=== PATIENT | male | born 1975 | race Caucasian/White ===

== ENCOUNTER 2020-03-16 14:25 | Observation (INO) | payer OTHER, SELFPAY ==
[2020-03-16] VITALS (10 sets, daily range): BP systolic 102–150; BP diastolic 65–91; PULSE 75–94; RESP 11–25; TEMP 37–37.7; O2SAT 96–98; BMI 22.2
--- NOTE | 2020-03-16 | PATH_ITS ---
[facility] Accession Number: [id number] . 01 Material submitted: . appendix - APPENDIX . 01 Clinical history: . LOWER QUAD PAIN/NAUSEA X2 DAYS . 02 Diagnosis: Appendix, Appendectomy: Portion of fibroadipose tissue with serositis; please see comment. Two benign lymph nodes. No appendiceal tissue identified. No evidence of neoplasm. MRV 03/20/2020 1433 Local . 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 . The findings in this case were reported to Dr. Golden via SANDRITA Dumont by Dr. Barksdale on 03/20/2020 at 10:00 a.m. The findings in the case were further discussed between Dr. Golden and Dr. Barksdale on 03/20/2020 at 12:18 p.m. . 02 Electronically signed: . Reginaldo Barksdale MD, PhD, Pathologist NPI- [id number] . 01 Gross description: . The specimen is received in formalin, labeled appendix, and consists of a 1.5 x 1.0 x 0.7 cm possible portion of appendiceal tip with a pink-purple, ragged serosa and a olson-pink mucosa. There is a 4.5 x 2.0 x 1.0 cm portion of attached olson-yellow, lobulated soft tissue with adherent purulent exudate. The specimen is entirely submitted. . A1: Candidate appendiceal tip, bisected. A2-A7: Remainder of specimen. ([id number]) /FRR 03/18/2020 1631 Local . 02 Pathologist provided ICD-10: R10.30 . 02 CPT . 619459 Performed at: [address] [facility], [place], [place] [id number] MD Bo Toure MD Phone: [phone] Performed at: 02 [facility] [id number] [place] [id number] MD Mariel Mcmullen MD Phone: [phone]
[2020-03-16 14:59] LABS: Add Manual Diff / Slide Review NO; Basophils Absolute Auto 0 /uL (0-100); Basophils Percent Auto 0.4 % (0-2); Eosinophils Absolute Auto 0 /uL (0-450); Eosinophils Percent Auto 0.1 % (2-4); Hemoglobin 15.9 g/dL (13.5-17.5); Lymphocytes Absolute Auto 2600 /uL (1100-4500); Lymphocytes Percent Auto 18.8 % (25-40); Mean Corpuscular HGB Conc 33.8 % (30-36); Mean Corpuscular Hemoglobin 31.4 PG (26-34); Mean Corpuscular Volume 92.8 fL (80-100); Monocytes Absolute Auto 1300 /uL (0-900); Monocytes Percent Auto 9.6 % (3-14); Neutrophils Absolute Auto 9700 /uL (1500-7000); Neutrophils Percent Auto 71.1 % (50-75); Platelet Count 210 X10^3/uL (150-400); Red Blood Cell Count 5.06 X10^6/uL (4.5-5.9); Red Cell Distribution Width 12.9 % (11.6-14.8); White Blood Cell Count 13.6 X10^3/uL (4.5-11.0)
[2020-03-16 15:06] LABS: INR 1.1 (0.9-1.3); Prothrombin Time 12.7 SECONDS (10.1-12.7)
[2020-03-16 15:08] LABS: PTT Partial Thromboplastin Tim 32 SECONDS (26.4-36.2)
[2020-03-16 15:12] LABS: Alanine Aminotransferase 24 IU/L (<50); Albumin 4.9 g/dL (3.5-5.0); Albumin Globulin Ratio 1.3 (1.0-2.8); Alkaline Phosphatase 57 U/L (38-126); Aspartate Aminotransferase 27 IU/L (17-59); BUN Creatinine Ratio 21.3 (6-22); Bilirubin Total 1.3 mg/dL (0.2-1.3); Blood Urea Nitrogen 17 mg/dL (9-20); Calcium 9.9 mg/dL (8.4-10.2); Carbon Dioxide 32 mmol/L (22-32); Chloride 97 mmol/L (98-107); Estimated Glomerular Filt Rate > 60.0 mL/min (>60); Globulin 3.9 g/dL (1.7-4.1); Glucose 104 mg/dL (70-100); HEMOLYSIS < 15 (0-50); Lipase 34 U/L (23-300); Potassium 4.1 mmol/L (3.4-5.1); Sodium 137 mmol/L (137-145); Total Protein 8.8 g/dL (6.3-8.2)
--- NOTE | 2020-03-16 17:08 | ED_ITS ---
HPI - Abdominal Pain General Chief Complaint: Abdominal Pain Stated Complaint: lower quad pain/nausea x2 days Time Seen by Provider: 03/16/20 17:07 Source: patient Mode of arrival: Ambulatory Limitations: no limitations History of Present Illness HPI narrative: The patient developed abdominal pain 2 days ago. Pain started in the epigastric region and is now moved to the right lower quadrant. He had nausea vomiting history. He had chills, no fever. He has no hematemesis. He is having no diarrhea. He is not eating or drinking well. He has no genital pain, no dysuria or hematuria. He denies associated back pain. History only healthy without medical problems. He has no recent URI symptoms, fever, sore throat, or dyspnea. He has no chest symptoms. He has had no recent injury or illness. He has no history of surgeries. Related Data Allergies Allergy/AdvReac Type Severity Reaction Status Date / Time No Known Drug Allergies Allergy Verified 03/16/20 14:33 Review of Systems Constitutional Constitutional: Denies body ache(s), Reports chills, Denies fever(s) and Denies headache(s) ENT Ears, Nose, Mouth, and Throat: Denies vertigo, Denies dizziness, Denies headache(s) and Denies sore throat Cardiovascular Cardiovascular: Denies chest pain, Denies irregular heart rhythm and Denies lightheadedness Gastrointestinal Gastrointestinal: Denies abdominal pain, Denies diarrhea, Denies nausea and Denies vomiting Musculoskeletal Musculoskeletal: Denies arthralgias, Denies back pain and Denies myalgias Integumentary/Breasts Skin/Breast: Denies erythema, Denies rash and Denies wounds Neurologic Neurologic: Denies confusion, Denies vertigo, Denies dizziness and Denies headache(s) Psychiatric Psychiatric: Denies confusion Patient History Medical History No chronic diseases present Surgical History No significant past surgical history Social History Smoking Status: Unknown if ever smoked Smoking Status: Unknown if ever smoked alcohol intake frequency: a few times a week Substance Use Type: marijuana Exam Initial Vital Signs Initial Vital Signs: Vital Signs Temperature 99.8 F H 03/16/20 14:32 Pulse Rate 94 H 03/16/20 14:32 Respiratory Rate 15 03/16/20 14:32 Blood Pressure 143/81 H 03/16/20 14:32 Pulse Oximetry 98 03/16/20 14:32 Const General: cooperative and well developed Nutritional Appearance: well nourished [facility] Head: normocephalic and atraumatic Neck Neck: trachea midline and No lymphadenopathy Resp Auscultation: clear to auscultation bilaterally Cardio Rate: regular rate Rhythm: regular rhythm Heart Sounds: S1 normal, S2 normal, no murmurs and no rubs GI Palpation: soft Other: Abdomen is flat, focal tenderness in the right lower quadrant with guarding and rebound. Normal bowel sounds. No masses. Heel tap is equivocal. Back/Spine/Pelvis Back: No CVA tenderness Skin General: no rashes or lesions noted Neuro General: patient oriented x3 Speech: speech normal Motor: muscle tone normal throughout Course Course Course Narrative: The patient was found to have acute retrocecal appendicitis. Social was given. He did receive Toradol, he is feeling better. The case was discussed with surgery, Dr. Golden. He will be evaluated later tonight by Dr. Golden for surgical care. Orders Ordered: ED Orders 03/16/20 14:38 EKG-12 Lead Stat 03/16/20 14:49 Complete Blood Count AUTO DIFF Stat Comprehensive Metabolic Panel Stat Lipase Stat Partial Thromboplastin Time Stat Prothrombin Time INR Stat 03/16/20 16:58 Urine Microscopic Stat 03/16/20 17:13 CT abdomen pelvis w con Stat Sodium Chloride (Normal Saline 0.9%) 1,000 mls @ 1,000 mls/hr IV BOLUS ONE Stop: 03/16/20 18:12 Last Admin: 03/16/20 17:33 Dose: 1,000 mls/hr Documented by: DANN Discontinued Medications Ketorolac Tromethamine (Ketorolac 60 Mg/2 Ml Vial) 30 mg IV NOW ONE Stop: 03/16/20 17:14 Last Admin: 03/16/20 17:33 Dose: 30 mg Documented by: DANN Vital Signs Vital signs: Vital Signs - 8 hr 03/16/20 14:32 03/16/20 16:06 03/16/20 17:00 Temperature 99.8 F H Pulse Rate 94 H 87 87 Respiratory Rate 15 16 19 Blood Pressure 143/81 H 132/78 127/79 Pulse Oximetry 98 98 98 MDM - Abdominal Pain Lab Data Result diagrams: 03/16/20 14:49 03/16/20 14:49 Labs: Lab Results 03/16/20 03/16/20 03/16/20 Range/Units 14:49 14:49 14:49 WBC 13.6 H (4.5-11.0) X10^3/uL RBC 5.06 (4.5-5.9) X10^6/uL Hgb 15.9 (13.5-17.5) g/dL Hct 47.0 (41-53) % MCV 92.8 (80-100) fL MCH 31.4 (26-34) PG MCHC 33.8 (30-36) % RDW 12.9 (11.6-14.8) % Plt Count 210 (150-400) X10^3/uL Neut % (Auto) 71.1 (50-75) % Lymph % (Auto) 18.8 L (25-40) % [place] % (Auto) 9.6 (3-14) % Eos % (Auto) 0.1 L (2-4) % Baso % (Auto) 0.4 (0-2) % Neut # (Auto) 9700 H (5557-2389) /uL Lymph # (Auto) 2600 (5105-1854) /uL [place] # (Auto) 1300 H (0-900) /uL Eos # (Auto) 0 (0-450) /uL Baso # (Auto) 0 (0-100) /uL PT 12.7 (10.1-12.7) SECONDS INR 1.1 (0.9-1.3) APTT 32 (26.4-36.2) SECONDS Sodium 137 (137-145) mmol/L Potassium 4.1 (3.4-5.1) mmol/L Chloride 97 L (98-107) mmol/L Carbon Dioxide 32 (22-32) mmol/L BUN 17 (9-20) mg/dL Creatinine 0.80 (0.66-1.25) mg/dL Estimated GFR > 60.0 (>60) mL/min BUN/Creatinine Ratio 21.3 (6-22) Glucose 104 H (70-100) mg/dL Calcium 9.9 (8.4-10.2) mg/dL Total Bilirubin 1.3 (0.2-1.3) mg/dL AST 27 (17-59) IU/L ALT 24 (<50) IU/L Alkaline Phosphatase 57 (38-126) U/L Total Protein 8.8 H (6.3-8.2) g/dL Albumin 4.9 (3.5-5.0) g/dL Globulin 3.9 (1.7-4.1) g/dL Albumin/Globulin Ratio 1.3 (1.0-2.8) Lipase 34 (23-300) U/L Urine RBC (0-5/HPF) Urine WBC (0-5/HPF) Ur Squamous Epith Cells (0-5/HPF) Amorphous Sediment Urine Bacteria (None) Urine Mucus (Negative) Ur Culture Indicated? 03/16/20 Range/Units 16:58 WBC (4.5-11.0) X10^3/uL RBC (4.5-5.9) X10^6/uL Hgb (13.5-17.5) g/dL Hct (41-53) % MCV (80-100) fL MCH (26-34) PG MCHC (30-36) % RDW (11.6-14.8) % Plt Count (150-400) X10^3/uL Neut % (Auto) (50-75) % Lymph % (Auto) (25-40) % [place] % (Auto) (3-14) % Eos % (Auto) (2-4) % Baso % (Auto) (0-2) % Neut # (Auto) (9256-0512) /uL Lymph # (Auto) (3106-8074) /uL [place] # (Auto) (0-900) /uL Eos # (Auto) (0-450) /uL Baso # (Auto) (0-100) /uL PT (10.1-12.7) SECONDS INR (0.9-1.3) APTT (26.4-36.2) SECONDS Sodium (137-145) mmol/L Potassium (3.4-5.1) mmol/L Chloride (98-107) mmol/L Carbon Dioxide (22-32) mmol/L BUN (9-20) mg/dL Creatinine (0.66-1.25) mg/dL Estimated GFR (>60) mL/min BUN/Creatinine Ratio (6-22) Glucose (70-100) mg/dL Calcium (8.4-10.2) mg/dL Total Bilirubin (0.2-1.3) mg/dL AST (17-59) IU/L ALT (<50) IU/L Alkaline Phosphatase (38-126) U/L Total Protein (6.3-8.2) g/dL Albumin (3.5-5.0) g/dL Globulin (1.7-4.1) g/dL Albumin/Globulin Ratio (1.0-2.8) Lipase (23-300) U/L Urine RBC 0-1/hpf (0-5/HPF) Urine WBC 0-1/hpf (0-5/HPF) Ur Squamous Epith Cells 0-1 /hpf (0-5/HPF) Amorphous Sediment 1+ Urine Bacteria Occasional (0-1) (None) Urine Mucus 2+ H (Negative) Ur Culture Indicated? Cult not indicated Point of care testing: Urine Dip Bedside Urine Glucose Negative Bedside Urine Bilirubin - Negative Bedside Urine Ketone +++ 80 Urine Specific [place] 1.025 Bedside Urine Occult Blood +/- Bedside Urine pH 6.0 Bedside Urine Protein - Negative Bedside Urine Urobilinogen - Negative Bedside Urine Nitrite - Negative Bedside Urine Leukocytes - Negative Esterase Imaging Data CT scan - abdomen/pelvis: Radiologist's Impression: Retrocecal appendicitis, without perforation. Critical Care Time Critical Care Time Critical Care Time: Yes Total Critical Care Time: 30 Attestation: Care include initial assessment patient, review of lab and x-ray data, discussing the situation the patient, and consultation with the admitting surgeon. Discharge Plan Departure Patient Disposition: Admitted to Surgery Clinical Impression: Acute appendicitis Qualifiers: Acute appendicitis type: with localized peritonitis Appendicitis gangrene presence: unspecified whether gangrene present Appendicitis perforation presence: without perforation Appendicitis abscess presence: unspecified whether abscess present Qualified Code(s): K35.30 - Acute appendicitis with localized peritonitis, without perforation or gangrene Admit Date/Time: 03/16/20 18:35 Admit Provider: Enrique Golden
--- NOTE | 2020-03-16 17:13 | DI.CT.S_ITS ---
PROCEDURE: CT ABDOMEN PELVIS W CON INDICATIONS: RLQ tenderness TECHNIQUE: After the administration of intravenous contrast, 5 mm thick sections acquired from the diaphragm to the symphysis. 5 mm coronal and sagittal reformats were acquired. For radiation dose reduction, the following was used: automated exposure control, adjustment of mA and/or kV according to patient size. COMPARISON: None. FINDINGS: Image quality: Excellent. ABDOMEN: Lung bases: Lung bases are clear. Heart size is normal. Solid organs: Liver is normal in size and enhancement. Gallbladder appears normal. Biliary system is non dilated. Pancreas enhances normally. Spleen is normal in size and enhancement. No adrenal nodules. Kidneys demonstrate normal size and enhancement, without hydronephrosis. Peritoneum and bowel: The appendix is dilated to 12 mm with surrounding periappendiceal fat stranding and edema that extends along the right pericolic gutter. No discrete fluid collection or pneumoperitoneum is seen. The appendix is retrocecal in location. There are no signs of bowel obstruction. Nodes and vessels: No retroperitoneal or mesenteric adenopathy by size criteria. Aorta and inferior vena cava are normal in size. Miscellaneous: No ventral hernias. PELVIS: Genitourinary: Bladder wall thickness is normal. Miscellaneous: No inguinal hernias or adenopathy. Bones: No suspicious bony lesions. No vertebral body compression fractures. IMPRESSION: Acute retrocecal appendicitis. Findings were discussed with the referring physician, Dr. Diamond, on 03/16/2020 at 4:41 PM ([place] time). Dictated by: Theo Abad M.D. on 03/16/2020 at 16:39 Approved by: Theo Abad M.D. on 03/16/2020 at 16:44
[2020-03-16 17:18] LABS: Amorphous Sediment Urine 1+; Bacteria Urine Occasional (0-1); Culture Indicated Urine Cult Not Indicated; Mucus Urine 2+ (Negative); RBC Urine 0-1/HPF (0-5/HPF); Squamous Epithelial Cell Urine 0-1 /HPF (0-5/HPF); WBC Urine 0-1/HPF (0-5/HPF)
[2020-03-16] MEDS: KETOROLAC 60 MG/2 ML VIAL 30 MG IV (17:33)
[2020-03-16] MEDS: SODIUM CHLORIDE 0.9% 1,000 ML 1000 ML IV (17:33)
[2020-03-16 18:48] LABS: COVID19 -Nasal RAPID Negative (Negative)
[2020-03-16] MEDS: PIPERACILLIN/TAZO 4.5 GM in SODIUM CHLORIDE 0.9% 100 ML 200 ML IV (18:49)
--- NOTE | 2020-03-16 20:23 | PM.HP.1 ---
History of Present Illness History of Present Illness Date Patient Seen: 03/16/20 Time Patient Seen: 20:23 Chief complaint: lower quad pain/nausea x2 days Narrative: 44M seen in consultation for acute appendicits. Two days of periumbilical pain 24 hours ago became focused in the right lower quadrant associated with nausea and vomiting. CT abdomen and pelvis demonstrates acute appendicitis no abscess retrocecal appendix. Admission temperature 99.8? remainder of vital signs within normal limits. WBC 14, hematocrit 47, creatinine 0.8. Urinalysis negative. Received 3.375 g Zosyn. No prior surgery or medical history. Patient History Medical History No chronic diseases present Surgical History No significant past surgical history Family & Social History Safety & Behavioral: Feels Safe in Current Yes Environment Been Physically Hurt or No Threatened By a Person Tobacco & Substance use: Smoking Status Unknown if ever smoked alcohol intake frequency a few times a week Substance Use Type marijuana Meds Home Medications and Allergies Allergies Allergy/AdvReac Type Severity Reaction Status Date / Time No Known Drug Allergies Allergy Verified 03/16/20 14:33 Review of Systems Review of Systems Narrative: A 10 point review of systems is negative except as noted in the HPI Exam Vital Signs (past 8 hours): - 03/16/20 14:32 03/16/20 16:06 03/16/20 17:00 Temperature 99.8 F H Pulse Rate 94 H 87 87 Respiratory Rate 15 16 19 Blood Pressure 143/81 H 132/78 127/79 Pulse Oximetry 98 98 98 03/16/20 19:25 03/16/20 19:49 Temperature Pulse Rate 79 83 Respiratory Rate 19 25 H Blood Pressure 122/66 102/65 Pulse Oximetry 97 98 Oxygen Delivery Method Room Air Narrative Exam Narrative: General-no acute distress, well nourished adult male HEENT-moist mucous membranes, no scleral icterus Neck-supple, no lymphadenopathy Chest- non labored respirations, clear to auscultation bilaterally Cardiac-regular rate no peripheral edema Abdomen-soft, focal tenderness right lower quadrant Extremities-warm, well perfused Neurological-alert and oriented, no focal deficits Objective Labs Result Diagrams: 03/16/20 14:49 03/16/20 14:49 Labs: Laboratory Results - last 24 hr 03/16/20 03/16/20 03/16/20 14:49 14:49 14:49 WBC 13.6 H RBC 5.06 Hgb 15.9 Hct 47.0 MCV 92.8 MCH 31.4 MCHC 33.8 RDW 12.9 Plt Count 210 Neut % (Auto) 71.1 Lymph % (Auto) 18.8 L [place] % (Auto) 9.6 Eos % (Auto) 0.1 L Baso % (Auto) 0.4 Neut # (Auto) 9700 H Lymph # (Auto) 2600 [place] # (Auto) 1300 H Eos # (Auto) 0 Baso # (Auto) 0 PT 12.7 INR 1.1 APTT 32 Sodium 137 Potassium 4.1 Chloride 97 L Carbon Dioxide 32 BUN 17 Creatinine 0.80 Estimated GFR > 60.0 BUN/Creatinine Ratio 21.3 Glucose 104 H Calcium 9.9 Total Bilirubin 1.3 AST 27 ALT 24 Alkaline Phosphatase 57 Total Protein 8.8 H Albumin 4.9 Globulin 3.9 Albumin/Globulin Ratio 1.3 Lipase 34 Urine RBC Urine WBC Ur Squamous Epith Cells Amorphous Sediment Urine Bacteria Urine Mucus Ur Culture Indicated? COVID-19 PCR 03/16/20 03/16/20 16:58 18:12 WBC RBC Hgb Hct MCV MCH MCHC RDW Plt Count Neut % (Auto) Lymph % (Auto) [place] % (Auto) Eos % (Auto) Baso % (Auto) Neut # (Auto) Lymph # (Auto) [place] # (Auto) Eos # (Auto) Baso # (Auto) PT INR APTT Sodium Potassium Chloride Carbon Dioxide BUN Creatinine Estimated GFR BUN/Creatinine Ratio Glucose Calcium Total Bilirubin AST ALT Alkaline Phosphatase Total Protein Albumin Globulin Albumin/Globulin Ratio Lipase Urine RBC 0-1/hpf Urine WBC 0-1/hpf Ur Squamous Epith Cells 0-1 /hpf Amorphous Sediment 1+ Urine Bacteria Occasional (0-1) Urine Mucus 2+ H Ur Culture Indicated? Cult not indicated COVID-19 PCR Negative Assessment & Plan Assessment and plan (1) Acute appendicitis: Qualifiers: Acute appendicitis type: with localized peritonitis Appendicitis abscess presence: unspecified whether abscess present Appendicitis gangrene presence: unspecified whether gangrene present Appendicitis perforation presence: without perforation Qualified Code(s): K35.30 - Acute appendicitis with localized peritonitis, without perforation or gangrene Status: Acute Assessment & Plan narrative: 44-year-old man with acute appendicitis. Laboratory studies and imaging reviewed. CT abdomen pelvis demonstrates acute appendicitis without abscess or phlegmon in a retrocecal position. Recommended we proceed with laparoscopic appendectomy. Technical details of the operation were discussed with the patient. Operative risks including bleeding infection conversion to open damage to surrounding structures were discussed. His questions have been answered he is in agreement with this plan will proceed to the operating room.
[2020-03-16] MEDS: ACETAMINOPHEN IV 1,000 MG/100 ML VIAL 400 MG IV (21:15)
[2020-03-16] MEDS: BUPIVACAINE 0.25% (PF) VIAL 30 ML INJ (21:19)
--- NOTE | 2020-03-16 22:14 | P.OP_ITS ---
Operative Date/Time/Diagnoses Date of procedure: 03/16/20 Time of procedure: 22:14 Pre-op diagnosis: acute appendicitis Post-op diagnosis: same Procedure & Clinicians Procedure: laparoscopic appendectomy Same procedure as scheduled: Yes Indications: 44M with acute appendicitis CT without abscess or phlegmon Surgeon: Enrique Golden Anesthesia Type: General Operative Notes Findings: Retrocecal acute nonperforated appendicits. Specimen(s): other (Appendix) Estimated Blood Loss (mL): 100 Procedure in detail: Patient was brought to the operating room placed supine on the table. Bilateral lower extremity compression devices were applied. Anesthesia was induced and they intubated with an endotracheal tube. They received 3.375 g of Zosyn prior to skin incision. The left arm was tucked and appropriately padded. They were prepped and draped in sterile fashion. Time-out was performed. An infraumbilical incision was made the umbilical stalk was grasped and elevated and incision was made and the abdomen was entered atraumatically. A 12 mm balloon trocar was then placed through the incision and pneumoperitoneum of 14 mm Hg was established. The scope was then inserted and the abdomen inspected, there was no evidence of injury upon entry. Two 5 mm ports were placed under direct visualization, one in the left lower quadrant and second in the lower midline. A thorough laparoscopic evaluation was performed inspecting all four quadrants. The patient was then tilted right side up. The small bowel was then swept to the upper aspect of the abdomen. The tenie were followed to the base of the cecum where the base of the appendix was identified. It was retrocecal and I mobilized the cecum medially in order to completely expose it by incising the white line of T[place]. The appendix was mobilized off the cecum and from its lateral attachments. It was acutely inflamed but not frankly perforated there was no abscess but there was significant fat strading. The appendix was grasped, the mesentery was divided with the LigaSure. In dissecting out the appendix it fractured off at its base. The remainder of the base was healthy and it was closed flush at the cecum with the endo stapler blue load. There was some generalized oozing from the raw surface area behind the cecum which was controlled with cautery. Hemostasis was observed and I placed a sheet of surgicel over the area as well. The specimen was retrieved using a endoscopic retrieval bad through the 10 mm infra-umbilical port. The right parac olic gutter and the pouch of Chap[place] were irrigated The 5 mm ports were then removed under direct visualization. The umbilical fascial incision was closed with 0 Vicryl in a figure-eight fashion. The skin wounds were irrigated and closed with 4-0 Monocryl followed by the application of Dermabond. Sponge instrument count at the end of the operation was correct. The patient tolerated procedure well was extubated and transferred to the postoperative care unit in stable condition. Complications: none Post-operative Condition: stable Disposition: observation
[2020-03-16] MEDS: SODIUM CHLORIDE 0.9% 1,000 ML 100 ML IV (23:08)
[2020-03-17] VITALS (11 sets, daily range): BP systolic 108–129; BP diastolic 57–78; PULSE 64–82; RESP 16–18; TEMP 36.5–37.3; O2SAT 94–97
[2020-03-17] MEDS: HYDROMORPHONE 0.5 MG INJ IV (03:49)
[2020-03-17] MEDS: ACETAMINOPHEN 325 MG TABLET 650 MG PO (05:51)
--- NOTE | 2020-03-17 11:25 | CM.DANOTE ---
Discharge Planning/Care Management DCP: assessment: case received, EMR reviewed, dc order noted. Met with pt and introduced self and role. Pt confirms that he is here from [place] and staying on [facility] for the holidays. Plans return in mid April. He wonders if his [place] Out of State plan will cover a followup visit with Dr. Golden. He agrees after discussion that is would be best for him to call the insurance customer service line and ask. Regardless, he does plan to followup with Dr. Golden if this is needed. Pt confirms that his is waiting in the parking lot and that they are hoping to take next ferry back to [place] (14:35). Explained priority board process and he says this would be very helpful. BLOOD BANK ASSISTANT informed and will process same. P: home today as above. SANDRITA Singleton is updated. CM Discharge Assessment Start: 03/17/20 11:18 Freq: Status: Active Protocol: Document 03/17/20 11:18 ITV (Rec: 03/17/20 11:25 ITV [id number]) Discharge Planning Assessment Advance Directives? No History Provided By Patient,Medical Record Prior Living Arrangements House Household Members spouse Independent with ADL's Yes Is patient alert and oriented? Yes
--- NOTE | 2020-03-17 11:40 | PC.NURSE ---
Am shift Pt is A/o x4, reports pain is well controlled with PO APAP, attempting to not use narcs if possible. BT Hypoactive, tolerating General diet. Plan to d/c later today. IV removed, priority boarding pass given, D/c teaching completed with Pt and released to / Private vehicle.
== END 2020-03-17 14:02 | disposition home or self-care (01) ==
LOC: ED 18:07 → AC 18:36 → ICU 23:01
PROVIDERS: Admitting Provider Surgery; Emergency Provider Emergency Medicine; Referring Provider Emergency Medicine; Visit Provider Surgery
PROC: 0DTJ4ZZ Resection of Appendix, Percutaneous Endoscopic Approach (ICD-10-PCS; CPT 44970; principal; 2020-03-16 21:30)
DX: K35.80 Unspecified acute appendicitis (principal); R10.31 Right lower quadrant pain
CPT/HCPCS: 44970; 36415; 74177; 80053; 81003; 81015; 83690; 85025; 85610; 85730; 87635; 87797; 96361; 96365; 96366; 96375; 99219; 99284; 99291; G0378; J0131; J0330; J1100; J1170; J1885; J2250; J2405; J2543; J2704; J3010; Q9967